=== PATIENT | female | born 1990 | race Caucasian/White ===

== ENCOUNTER 2016-09-23 16:52 | Emergency (ER) | payer SELFPAY ==
[~2016-09-23] VITALS: Ht 180.3 cm; Wt 167.7 kg
[~2016-09-23 16:52] MED LIST: BCPILLS PO; BUPR-79 PO; BUPR100T8 PO; OMEP40CA PO
[2016-09-23 16:58] VITALS: Ht 180.3 cm; Wt 167.7 kg
[2016-09-23] MEDS ORDERED: SODIUM CHLORIDE 0.9% 1000ML 1,000 ML IV STA (18:01)
[2016-09-23] MEDS ORDERED: KETOROLAC TROMETHAMINE 30 MG/ML VIAL IV STA (18:01)
--- NOTE | 2016-09-23 18:15 | DIAGNOSTIC IMAGING REPORT ---
CHEST ONE VIEW PORTABLE CLINICAL HISTORY: cough, fevers dyspnea COMPARISON STUDY: 08/15/2012 FINDINGS: The bones soft tissues and hemidiaphragms are normal. The cardiomediastinal silhouette is normal. The lungs are clear. The pulmonary vasculature is normal. IMPRESSION: Negative chest. Electronically signed by: Gabriel Mercado M.D. 09/23/2016 6:13 PM
[2016-09-23 19:02] LABS: BASO % 0.5 %; BASO ABS # 0.04 K/uL (0-0.2); COMPLETE YES; EOS % 3.8 %; HEMATOCRIT 40.9 % (37-47); IG% 0.3 %; LYMPH % 33.9 %; LYMPH ABS # 2.58 K/uL (1.2-3.4); MEAN CELL VOLUME 87.6 fL (80-100); MEAN CORPUSCULAR HEMOGLOBIN 29.3 pg (25-34); MEAN CORPUSCULAR HGB CONC 33.5 g/dl (32-36); MEAN PLATELET VOLUME 9.6 fL (7.4-10.4); NEUT % 55.5 %; PLATELET COUNT 288 K/uL (130-400); RED BLOOD COUNT 4.67 M/uL (4.2-5.4); WHITE BLOOD COUNT 7.62 K/uL (4.8-10.8)
[2016-09-23 19:26] LABS: BUN/CREATININE RATIO 16.3 (10-20); CALCIUM 8.9 mg/dl (8.5-10.1); CREATININE 0.75 mg/dl (0.60-1.20); POTASSIUM 4.1 mmol/L (3.5-5.1)
--- NOTE | 2016-09-23 20:26 | EMERGENCY ROOM VISIT NOTE ---
History First contact with patient: 17:54 Chief Complaint: FLU LIKE SX Stated Complaint: BODY ACHES, FEVER, HEADACHE History of Present Illness The patient is a 25 year old female who presents to the Emergency Room with complaints of flulike symptoms which began last night. The patient reports she has had "hot flashes," headaches and body aches. She has also had a mild cough. She does repeat she has had a nausea and decreased appetite as well. The patient has felt feverish, but has not taken her temperature. She did not take any medications today. She denies any neck pain/stiffness. She denies any chest pain, shortness of breath, vomiting or diarrhea. Review of Systems A complete 10-point Review of Systems was discussed with the patient, with pertinent positives and negatives listed in the History of Present Illness. All remaining Review of Systems questions can be considered negative unless otherwise specified. Past Medical/Surgical History Medical Problems: (1) Abdominal pain (2) Cellulitis of lip (3) Conjunctivitis (4) Contusion of right knee (5) Diab Lachelle Wo Compl, Type Ii Or Unspec Type, Not Uncntrld (6) Epigastric abdominal pain (7) Esophageal Reflux (8) Fall from slipping on slippery surface (9) Hyperlipidemia Nec/Nos (10) Hypertension (11) Hypertension Nos (12) Morbid Obesity (13) PCOS (polycystic ovarian syndrome) (14) Sore throat (15) Suicidal ideation (16) Tobacco Use Disorder (17) Upper respiratory infection (18) Work related injury Surgical Problems: (1) History of tonsillectomy and adenoidectomy Family History Diabetes mellitus FH: cancer FH: cardiovascular disease Social History Smoking Status: Current Every Day Smoker Alcohol Use: none Drug Use: none Marital Status: single Housing Status: lives with family Occupation Status: employed Current/Historical Medications Scheduled Bupropion (Wellbutrin Sr), 100 MG PO QAM Bupropion (Wellbutrin Sr), 150 MG PO DAILY@1300 Clonidine Hcl (Catapres), 0.2 MG PO HS Hctz/Lisinopril (Lisinopril/Hctz 10/12.5 Mg), 1 TAB PO DAILY Metformin Hcl (Glucophage), 500 MG PO BID Multivitamin (Multivitamin), 1 TAB PO DAILY Omeprazole (Prilosec), 40 MG PO DAILY Allergies Coded Allergies: Amoxicillin (Verified Allergy, Unknown, ., 09/23/16) Hydrocodone (Verified Allergy, Unknown, /, 09/23/16) Lanolin (Unverified Allergy, Unknown, BREAKOUT, 09/23/16) Oxycodone (Verified Allergy, Unknown, hives, 09/23/16) Physical Exam Vital Signs Date Time Temp Pulse Resp B/P Pulse Ox O2 Delivery O2 Flow Rate FiO2 09/23/16 20:56 36.9 60 18 125/81 99 09/23/16 16:58 36.9 71 16 132/88 98 Room Air Physical Exam VITALS: Vitals are noted on the nurse's note and reviewed by myself. Vital signs stable. GENERAL: This is a 25-year-old female, in no acute distress, nondiaphoretic, nontoxic in appearance, well-developed well-nourished. SKIN: The skin was without rashes. EARS: External auditory canals clear, tympanic membranes pearly bryant without erythema or effusion bilaterally. EYES: Pupils equal round and reactive to light and accommodation. Extraocular movements intact. NOSE: Patent, turbinates without inflammation or discharge. No sinus tenderness. MOUTH: Mucous membranes moist. Tonsils are not enlarged. Pharynx without erythema or exudate. NECK: Supple without nuchal rigidity. No lymphadenopathy. Negative Kernig and Brudzinski sign. HEART: Regular rate and rhythm without murmurs gallops or rubs. LUNGS: Clear to auscultation bilaterally without wheezes, rales or rhonchi. No retractions or accessory muscle use. ABDOMEN: Soft, nontender to palpation. NEURO: Patient was alert and oriented to person place and time. Medical Decision & Procedures ER Provider Diagnostic Interpretation: CHEST ONE VIEW PORTABLE FINDINGS: The bones soft tissues and hemidiaphragms are normal. The cardiomediastinal silhouette is normal. The lungs are clear. The pulmonary vasculature is normal. IMPRESSION: Negative chest. Laboratory Results 09/23/16 18:34 Red Blood Count 4.67, Mean Corpuscular Volume 87.6, Mean Corpuscular Hemoglobin 29.3, Mean Corpuscular Hemoglobin Concent 33.5, Mean Platelet Volume 9.6, Neutrophils (%) (Auto) 55.5, Lymphocytes (%) (Auto) 33.9, Monocytes (%) (Auto) 6.0, Eosinophils (%) (Auto) 3.8, Basophils (%) (Auto) 0.5, Neutrophils # (Auto) 4.23, Lymphocytes # (Auto) 2.58, Monocytes # (Auto) 0.46, Eosinophils # (Auto) 0.29, Basophils # (Auto) 0.04 09/23/16 18:34 Test 09/23/16 18:30 09/23/16 18:34 Influenza Type A Antigen Neg for Influ A (NEG) Influenza Type B Antigen Neg for Influ B (NEG) White Blood Count 7.62 K/uL (4.8-10.8) Red Blood Count 4.67 M/uL (4.2-5.4) Hemoglobin 13.7 g/dL (12.0-16.0) Hematocrit 40.9 % (37-47) Mean Corpuscular Volume 87.6 fL (80-100) Mean Corpuscular Hemoglobin 29.3 pg (25-34) Mean Corpuscular Hemoglobin Concent 33.5 g/dl (32-36) Platelet Count 288 K/uL (130-400) Mean Platelet Volume 9.6 fL (7.4-10.4) Neutrophils (%) (Auto) 55.5 % Lymphocytes (%) (Auto) 33.9 % Monocytes (%) (Auto) 6.0 % Eosinophils (%) (Auto) 3.8 % Basophils (%) (Auto) 0.5 % Neutrophils # (Auto) 4.23 K/uL (1.4-6.5) Lymphocytes # (Auto) 2.58 K/uL (1.2-3.4) Monocytes # (Auto) 0.46 K/uL (0.11-0.59) Eosinophils # (Auto) 0.29 K/uL (0-0.5) Basophils # (Auto) 0.04 K/uL (0-0.2) RDW Standard Deviation 42.3 fL (36.4-46.3) RDW Coefficient of Variation 13.3 % (11.5-14.5) Immature Granulocyte % (Auto) 0.3 % Immature Granulocyte # (Auto) 0.02 K/uL (0.00-0.02) Anion Gap 8.0 mmol/L (3-11) Est Creatinine Clear Calc Drug Dose 200.0 ml/min Estimated GFR () 129.3 Estimated GFR (Non- 111.6 BUN/Creatinine Ratio 16.3 (10-20) Calcium Level 8.9 mg/dl (8.5-10.1) Monoscreen NEG (NEG) Medications Administered Medications (Trade) Dose Ordered Sig/Eddie Route Start Time Stop Time Status Last Admin Dose Admin Sodium Chloride (Nss 1000ml) 1,000 ml @ 999 mls/hr Q1H1M STAT IV 09/23/16 18:01 09/23/16 19:01 DC 09/23/16 18:01 999 MLS/HR Ketorolac Tromethamine (Toradol Inj) 30 mg NOW STAT IV 09/23/16 18:01 09/23/16 18:03 DC 09/23/16 18:52 30 MG Medical Decision Differential diagnosis includes influenza, mononucleosis, viral syndrome, meningitis, encephalitis, pneumonia, upper respiratory infection, among others. The patient was evaluated as above. Labs were drawn and IV access was obtained. Imaging studies were performed and read by radiology as above. The patient was medicated with 30 mg Toradol IV and 1 L normal saline solution. The patient was reassessed multiple times during their stay in the emergency department and remained in stable condition. The patient is a 25-year-old female who presents today complaining of flulike symptoms. Labs revealed no leukocytosis, anemia or concerning electrolyte abnormalities. [place] screen was negative. Influenza was negative. Chest x-ray did not show any evidence of pneumonia. There is no evidence of meningismus on examination. The patient does report headaches, but they are not severe and she does not complain of neck stiffness or neck pain. I feel that meningitis is very unlikely. The patient likely has a viral flulike illness. She felt much better after IV Toradol and fluids. Conservative measures were discussed with the patient, he will follow up with her primary care provider or return for worsening symptoms. Based on the patient's presentation, lab results, and imaging studies, I feel the patient is stable for outpatient treatment. Discharge instructions were reviewed with the patient. The patient verbalized understanding of my assessment and treatment plan and was discharged home in good condition. Impression Primary Impression: Influenza-like symptoms Departure Information Dispostion Home / Self-Care Condition GOOD Referrals Meli Barone D.O. (PCP) Patient Instructions A Signature Page, My [facility] Additional Instructions For pain control, you can use the following [id number] medicines (if >12 yo): - Regular strength (325mg/tab) Tylenol (acetaminophen) 2 tabs every 4-6 hours as needed. Do not exceed 12 tablets in a 24 hour period. Avoid taking more than 4 grams (4000 mg) of Tylenol per day. This includes any other sources of acetaminophen you may take on a regular basis. - Regular strength (200 mg/tab) Advil (ibuprofen) 1-2 tabs every 4-6 hours as needed. Do not exceed a dose of 3200 mg per day. Rest and drink plenty of fluids. Follow-up with your primary care provider within 2-3 days for further evaluation of your symptoms.
[2016-09-23 20:56] VITALS: BP 125/81; PULSE 60; TEMP 36.9; O2SAT 99
[2017-03-24] MEDS ORDERED: LSN/10125 PO (00:57)
[2017-03-24] MEDS ORDERED: MULT-506 PO (00:59)
[2017-03-24] MEDS ORDERED: CLON0.2T PO (09:17)
[2017-03-24] MEDS ORDERED: GLC/500 PO (21:19)
== END 2016-09-23 20:50 | disposition home or self-care (01) ==
LOC: C.EDB 16:54
DX: R51 Headache (principal); M79.1 Myalgia; R05 Cough; R11.0 Nausea; E11.9 Type 2 diabetes mellitus without complications; Z79.84 Long term (current) use of oral hypoglycemic drugs; E66.01 Morbid (severe) obesity due to excess calories; Z68.43 Body mass index [BMI] 50.0-59.9, adult; K21.9 Gastro-esophageal reflux disease without esophagitis; E78.5 Hyperlipidemia, unspecified; I10 Essential (primary) hypertension; F17.200 Nicotine dependence, unspecified, uncomplicated

== ENCOUNTER 2016-11-06 20:57 | Emergency (ER) | payer SELFPAY ==
[~2016-11-06] VITALS: Ht 180.3 cm; Wt 175.8 kg
[~2016-11-06 20:57] MED LIST changes: -BCPILLS PO
[2016-11-06 21:04] VITALS: TEMP 36.9; Ht 180.3 cm; Wt 175.8 kg
[2016-11-06] MEDS ORDERED: LIDOCAINE HCL 2% VISC SOLN 20 ML UDC PO STA (21:34)
[2016-11-06] MEDS ORDERED: DiphenhydrAMINE HCL 50 MG/ML VIAL IV STA (21:34)
[2016-11-06] MEDS ORDERED: ALUMINUM/MAGNESIUM SUSP 30 ML UDC PO STA (21:34)
[2016-11-06] MEDS ORDERED: SODIUM CHLORIDE 0.9% 1000ML 1,000 ML IV STA ×2 (21:34)
[2016-11-06] MEDS ORDERED: METOCLOPRAMIDE HCL INJ 5 MG/ML 2 ML VIAL IV STA (21:34)
[2016-11-06 22:15] VITALS: O2SAT 97
[2016-11-06 23:17] LABS: BASO % 0.4 %; BASO ABS # 0.03 K/uL (0-0.2); COMPLETE YES; EOS % 3.9 %; IG% 0.1 %; LYMPH ABS # 3.25 K/uL (1.2-3.4); MEAN CELL VOLUME 87.1 fL (80-100); MEAN CORPUSCULAR HGB CONC 33.3 g/dl (32-36); MEAN PLATELET VOLUME 9.8 fL (7.4-10.4); NEUT % 45.6 %; PLATELET COUNT 265 K/uL (130-400); RED BLOOD COUNT 4.48 M/uL (4.2-5.4); WHITE BLOOD COUNT 7.38 K/uL (4.8-10.8)
[2016-11-06 23:35] LABS: ALT/SGPT 33 U/L (12-78); AST/SGOT 13 U/L (15-37); BLOOD UREA NITROGEN 10 mg/dl (7-18); BUN/CREATININE RATIO 15.9 (10-20); CALCIUM 8.7 mg/dl (8.5-10.1); CARBON DIOXIDE 24 mmol/L (21-32); CHLORIDE 110 mmol/L (98-107); CREATININE 0.63 mg/dl (0.60-1.20); GLUCOSE 85 mg/dl (70-99); POTASSIUM 4.1 mmol/L (3.5-5.1); SODIUM 145 mmol/L (136-145)
[2016-11-06 23:38] LABS: ALKALINE PHOSPHATASE 75 U/L (45-117)
[2016-11-06 23:43] LABS: PREG INTERNAL NEGATIVE QC NEG CLEAR BACKGROUND; PREG INTERNAL POSITIVE QC POS CONTROL LINE
[2016-11-07] MEDS ORDERED: PANTOprazole SOD 40 MG TAB PO STA (00:21)
[2016-11-07] MEDS ORDERED: PANT40TA PO (00:23)
[2016-11-07 00:36] LABS: URINE APPEARANCE CLOUDY (CLEAR); URINE BILIRUBIN NEG (NEG); URINE COLOR YELLOW; URINE EPITHELIAL CELL AUTO 20-30 /lpf (0-5); URINE NITRITE NEG (NEG); URINE PH 5.5 (4.5-7.5); URINE SPECIFIC GRAVITY 1.028 (1.000-1.030); UROBILINOGEN NEG (NEG); ZZUR CULT IF INDIC CLEAN CATCH NO
[2016-11-07 00:45] VITALS: BP 135/68; PULSE 58; O2SAT 98
[2016-11-07 00:53] LABS: MANUAL MICROSCOPIC REQUIRED? NO; REVIEW REQ? YES
[2016-11-07 00:55] LABS: URINE MUCUS PRESENT (NONE PRSENT)
--- NOTE | 2016-11-07 06:27 | DIAGNOSTIC IMAGING REPORT ---
ABDOMINAL ULTRASOUND, RIGHT UPPER QUADRANT HISTORY: Right upper quadrant abdominal pain.. COMPARISON: Right upper quadrant ultrasound February 23, 2016. FINDINGS: This exam is significantly compromised by suboptimal penetration. Hepatic echogenicity is increased. No hepatic lesions are identified although sensitivity is diminished on this exam. The pancreas body is normal. The head and tail are obscured. There are no gallstones. No biliary ductal dilatation is identified. There is no gallbladder wall thickening. There is no right hydronephrosis. IMPRESSION: 1. No gallstones or biliary ductal dilatation. 2. Study significantly compromised by suboptimal penetration. Partially obscured pancreas. 3. Fatty liver. Electronically signed by: Gio Bernard M.D. 11/07/2016 6:26 AM Dictated Date/Time: 11/07/2016 6:24 AM
--- NOTE | 2016-11-07 06:41 | EMERGENCY ROOM VISIT NOTE ---
History First contact with patient: 21:27 Chief Complaint: ABDOMINAL PAIN Stated Complaint: STOMACH PAIN, BACK PAIN, NAUSEA History of Present Illness The patient is a 26 year old female who presents to the Emergency Room with complaints of nausea, epigastric discomfort for the past day described as burning, ranging in severity 7 out of 10. She's had these symptoms before. She is unsure if its her reflux or her gallbladder. Patient denies chest pain, dyspnea, fever, chills, vomiting, diarrhea, cough, congestion. She is tolerating by mouth fluids and food. Review of Systems See HPI for pertinent positives & negatives. A total of 10 systems reviewed and were otherwise negative. Past Medical/Surgical History Medical Problems: (1) Abdominal pain (2) Cellulitis of lip (3) Conjunctivitis (4) Contusion of right knee (5) Diab Lachelle Wo Compl, Type Ii Or Unspec Type, Not Uncntrld (6) Epigastric abdominal pain (7) Esophageal Reflux (8) Fall from slipping on slippery surface (9) Hyperlipidemia Nec/Nos (10) Hypertension (11) Hypertension Nos (12) Morbid Obesity (13) PCOS (polycystic ovarian syndrome) (14) Sore throat (15) Suicidal ideation (16) Tobacco Use Disorder (17) Upper respiratory infection (18) Work related injury Surgical Problems: (1) History of tonsillectomy and adenoidectomy Family History Diabetes mellitus FH: cancer FH: cardiovascular disease Social History Smoking Status: Current Every Day Smoker Alcohol Use: none Drug Use: none Marital Status: single Housing Status: lives with family Occupation Status: employed Current/Historical Medications Scheduled Bupropion (Wellbutrin Sr), 100 MG PO QAM Bupropion (Wellbutrin Sr), 150 MG PO DAILY@1300 Clonidine Hcl (Catapres), 0.2 MG PO HS Hctz/Lisinopril (Lisinopril/Hctz 10/12.5 Mg), 1 TAB PO DAILY Metformin Hcl (Glucophage), 500 MG PO BID Multivitamin (Multivitamin), 1 TAB PO DAILY Omeprazole (Prilosec), 40 MG PO DAILY Pantoprazole (Protonix), 40 MG PO DAILY Allergies Coded Allergies: Amoxicillin (Verified Allergy, Unknown, ., 11/06/16) Hydrocodone (Verified Allergy, Unknown, /, 11/06/16) Lanolin (Unverified Allergy, Unknown, BREAKOUT, 11/06/16) Oxycodone (Verified Allergy, Unknown, hives, 11/06/16) Physical Exam Vital Signs Date Time Temp Pulse Resp B/P Pulse Ox O2 Delivery O2 Flow Rate FiO2 11/07/16 00:45 58 19 135/68 98 Room Air 11/06/16 23:03 60 21 144/63 98 Room Air 11/06/16 22:19 62 11/06/16 22:15 97 Room Air 11/06/16 21:04 36.9 74 16 157/93 100 Room Air Physical Exam VITALS: Vitals are noted on the nurse's note and reviewed by myself. Vital signs stable. GENERAL: Pleasant female, in no acute distress, nondiaphoretic, well-developed well-nourished. SKIN: The skin was without rashes, erythema, edema, or bruising. There is no tenting of the skin. Capillary reflex less than 2 seconds. HEAD: Normocephalic atraumatic. EARS: External auditory canals clear, tympanic membranes pearly bryant without erythema or effusion bilaterally. EYES: Pupils equal round and reactive to light and accommodation. Conjunctivae without injection, sclerae without icterus. Extraocular movements intact. NOSE: Patent, turbinates without inflammation or discharge. No sinus tenderness. MOUTH: Mucous membranes moist. Tonsils are not enlarged. Pharynx without erythema or exudate. Uvula midline. Airway patent. Tongue does not deviate. NECK: Supple without nuchal rigidity. No lymphadenopathy. No thyromegaly. Cervical spine is nontender. No JVD. HEART: Regular rate and rhythm without murmurs gallops or rubs. LUNGS: Clear to auscultation bilaterally without wheezes, rales or rhonchi. No dullness to percussion. No retractions or accessory muscle use. ABDOMEN: Positive bowel sounds x 4. Normal tympanic percussion. Soft, protuberant, obese, tender to palpation epigastric region, without masses or organomegaly. Jackson sign negative. No guarding or rebound tenderness. No CVA tenderness MUSCULOSKELETAL: No muscle atrophy, erythema, noted. NEURO: Patient was alert and oriented to person place and time. Normal sensation to light and sharp touch. No focal neurological deficits. Medical Decision & Procedures Laboratory Results 11/06/16 23:00 Red Blood Count 4.48, Mean Corpuscular Volume 87.1, Mean Corpuscular Hemoglobin 29.0, Mean Corpuscular Hemoglobin Concent 33.3, Mean Platelet Volume 9.8, Neutrophils (%) (Auto) 45.6, Lymphocytes (%) (Auto) 44.0, Monocytes (%) (Auto) 6.0, Eosinophils (%) (Auto) 3.9, Basophils (%) (Auto) 0.4, Neutrophils # (Auto) 3.36, Lymphocytes # (Auto) 3.25, Monocytes # (Auto) 0.44, Eosinophils # (Auto) 0.29, Basophils # (Auto) 0.03 11/06/16 23:00 Test 11/06/16 23:00 11/07/16 00:18 White Blood Count 7.38 K/uL (4.8-10.8) Red Blood Count 4.48 M/uL (4.2-5.4) Hemoglobin 13.0 g/dL (12.0-16.0) Hematocrit 39.0 % (37-47) Mean Corpuscular Volume 87.1 fL (80-100) Mean Corpuscular Hemoglobin 29.0 pg (25-34) Mean Corpuscular Hemoglobin Concent 33.3 g/dl (32-36) Platelet Count 265 K/uL (130-400) Mean Platelet Volume 9.8 fL (7.4-10.4) Neutrophils (%) (Auto) 45.6 % Lymphocytes (%) (Auto) 44.0 % Monocytes (%) (Auto) 6.0 % Eosinophils (%) (Auto) 3.9 % Basophils (%) (Auto) 0.4 % Neutrophils # (Auto) 3.36 K/uL (1.4-6.5) Lymphocytes # (Auto) 3.25 K/uL (1.2-3.4) Monocytes # (Auto) 0.44 K/uL (0.11-0.59) Eosinophils # (Auto) 0.29 K/uL (0-0.5) Basophils # (Auto) 0.03 K/uL (0-0.2) RDW Standard Deviation 42.9 fL (36.4-46.3) RDW Coefficient of Variation 13.4 % (11.5-14.5) Immature Granulocyte % (Auto) 0.1 % Immature Granulocyte # (Auto) 0.01 K/uL (0.00-0.02) Anion Gap 11.0 mmol/L (3-11) Est Creatinine Clear Calc Drug Dose 243.0 ml/min Estimated GFR () 144.5 Estimated GFR (Non- 124.7 BUN/Creatinine Ratio 15.9 (10-20) Calcium Level 8.7 mg/dl (8.5-10.1) Total Bilirubin 0.1 mg/dl (0.2-1) Direct Bilirubin < 0.1 mg/dl (0-0.2) Aspartate Amino Transf (AST/SGOT) 13 U/L (15-37) Alanine Aminotransferase (ALT/SGPT) 33 U/L (12-78) Alkaline Phosphatase 75 U/L (45-117) Total Protein 6.8 gm/dl (6.4-8.2) Albumin 3.3 gm/dl (3.4-5.0) Lipase 192 U/L (73-393) Human Chorionic Gonadotropin, Qual NEG (NEG) Urine Color YELLOW Urine Appearance CLOUDY (CLEAR) Urine pH 5.5 (4.5-7.5) Urine Specific [place] 1.028 (1.000-1.030) Urine Protein NEG (NEG) Urine Glucose (UA) NEG (NEG) Urine Ketones NEG (NEG) Urine Occult Blood NEG (NEG) Urine Nitrite NEG (NEG) Urine Bilirubin NEG (NEG) Urine Urobilinogen NEG (NEG) Urine Leukocyte Esterase NEG (NEG) Urine WBC (Auto) 1-5 /hpf (0-5) Urine RBC (Auto) 0-4 /hpf (0-4) Urine Hyaline Casts (Auto) 1-5 /lpf (0-5) Urine Epithelial Cells (Auto) 20-30 /lpf (0-5) Urine Bacteria (Auto) NEG (NEG) Urine Crystals CALCIUM OXALATE (NONE Urine Mucus PRESENT (NONE PRSENT) Medications Administered Medications (Trade) Dose Ordered Sig/Eddie Route Start Time Stop Time Status Last Admin Dose Admin Lidocaine HCl (Viscous Lidocaine 2% Soln) 10 ml NOW STAT PO 11/06/16 21:34 11/06/16 21:37 DC 11/06/16 22:19 10 ML Al Hydroxide/Mg Hydroxide 30 ml 30 ml NOW STAT PO 11/06/16 21:34 11/06/16 21:37 DC 11/06/16 22:20 30 ML Sodium Chloride 1,000 ml @ 999 mls/hr Q1H1M STAT IV 11/06/16 21:34 11/06/16 22:34 DC 11/06/16 22:21 999 MLS/HR Sodium Chloride (Nss 1000ml) 1,000 ml @ 200 mls/hr Q5H STAT IV 11/06/16 21:34 11/07/16 01:26 DC 11/06/16 21:34 200 MLS/HR Metoclopramide HCl (Reglan Inj) 10 mg NOW STAT IV 11/06/16 21:34 11/06/16 21:37 DC 11/06/16 22:20 10 MG Diphenhydramine HCl (Benadryl Inj) 12.5 mg NOW STAT IV 11/06/16 21:34 11/06/16 21:37 DC 11/06/16 22:20 12.5 MG Pantoprazole Sodium (Protonix Tab) 40 mg NOW STAT PO 11/07/16 00:21 11/07/16 00:22 DC 11/07/16 00:40 40 MG ED Course Prior records/ancillary studies reviewed. Triage Nursing notes reviewed. Additional history obtained from family. The patient's history was concerning for abdominal pain. Differential diagnosis: Etiologies such as appendicitis, diverticulitis, PUD, biliary pathology, UTI, pancreatitis, obstruction, mesenteric ischemia, aortic pathology, infections, inflammatory bowel disease, renal colic, as well as others were entertained. Physical examination findings: As above. ER treatment provided: GI cocktail, IV fluids, Reglan, Benadryl On reassessment the patient felt better. Diagnostics interpreted by me: The labs revealed no worrisome leukocytosis or electrolyte abnormality. Stable H&H Imaging studies: ABDOMINAL ULTRASOUND, RIGHT UPPER QUADRANT HISTORY: Right upper quadrant abdominal pain.. COMPARISON: Right upper quadrant ultrasound February 23, 2016. FINDINGS: This exam is significantly compromised by suboptimal penetration. Hepatic echogenicity is increased. No hepatic lesions are identified although sensitivity is diminished on this exam. The pancreas body is normal. The head and tail are obscured. There are no gallstones. No biliary ductal dilatation is identified. There is no gallbladder wall thickening. There is no right hydronephrosis. IMPRESSION: 1. No gallstones or biliary ductal dilatation. 2. Study significantly compromised by suboptimal penetration. Partially obscured pancreas. 3. Fatty liver. Electronically signed by: Gio Bernard M.D. Exam and history seem consistent with gastric discomfort most likely acid reflux. Patient was started on a PPI.. Patient is well-appearing. She did not have acute abdomen on exam. She is tolerating fluids. She is advised to rest, stay well-hydrated, follow-up family care in a few days or here in the ER sooner for abdominal pain, fevers, vomiting, worsening signs or symptoms or as needed.By the evaluation outlined above emergent etiologies such as appendicitis , diverticulitis, PUD, biliary pathology, UTI, pancreatitis, obstruction, mesenteric ischemia, aortic pathology, infections, inflammatory bowel disease, renal colic, as well as others were deemed relatively unlikely. The pt informed about the findings as listed above. All questions were answered and pleased with the treatment. Return instructions were outlined and the patient was discharged in stable condition. Outpatient prescription management: Protonix Referral: The patient was referred back to their primary care physician for follow-up in 2 to 3 days for a recheck of the current condition. case reviewed with my Attending Medical Decision As above Impression Primary Impression: Abdominal discomfort, epigastric Additional Impression: GERD (gastroesophageal reflux disease) Departure Information Dispostion Home / Self-Care Condition GOOD Prescriptions Pantoprazole (Protonix) 40 Mg Tab 40 MG PO DAILY for 14 Days, #14 TAB Prov: Jammie Aponte .ORQUIDEA 11/07/16 Referrals Meli Barone D.O. (PCP) Patient Instructions My [facility] Additional Instructions Protonix 40 m tablet daily for the next 2 weeks. Take this on an empty stomach. You can try Maalox for breakthrough symptoms. Acetaminophen(Tylenol) may be used for fever or pain. Use 1000mg every six hours as needed. Avoid using more than 3000mg in a 24 hour period. Rest and drink plenty of fluids as tolerated. Continue current medications. Return to the ER immediately for worsening or persistent abdominal pain, vomiting, fevers, chest pains, difficulty breathing, worsening of your condition , or as needed. Follow up with your primary physician in 2-3 days for a recheck of your current condition. Problem Qualifiers
[2017-03-24] MEDS ORDERED: LSN/10125 PO (00:57)
[2017-03-24] MEDS ORDERED: MULT-506 PO (00:59)
[2017-03-24] MEDS ORDERED: CLON0.2T PO (09:17)
[2017-03-24] MEDS ORDERED: GLC/500 PO (21:19)
== END 2016-11-07 00:47 | disposition home or self-care (01) ==
LOC: C.EDB 20:58 → C.EDC 11-07 00:47
DX: R10.13 Epigastric pain (principal); K21.9 Gastro-esophageal reflux disease without esophagitis; R11.0 Nausea; E11.9 Type 2 diabetes mellitus without complications; E78.5 Hyperlipidemia, unspecified; I10 Essential (primary) hypertension; Z79.84 Long term (current) use of oral hypoglycemic drugs; Z79.899 Other long term (current) drug therapy; Z88.1 Allergy status to other antibiotic agents; Z88.5 Allergy status to narcotic agent; Z88.8 Allergy status to other drugs, medicaments and biological substances

== ENCOUNTER 2016-11-17 00:09 | Emergency (ER) | payer SELFPAY ==
[~2016-11-17] VITALS: Ht 180.3 cm; Wt 167.2 kg
[~2016-11-17 00:09] MED LIST changes: -OMEP40CA PO; +PANT40TA PO
[2016-11-17 00:14] VITALS: TEMP 37.1; Ht 180.3 cm; Wt 167.2 kg
[2016-11-17] MEDS ORDERED: ONDANSETRON INJ 2 MG/ML 2 ML VIAL IV STA (00:35)
[2016-11-17] MEDS ORDERED: SODIUM CHLORIDE 0.9% 1000ML 1,000 ML IV STA (00:35)
[2016-11-17 00:54] LABS: URINE APPEARANCE CLEAR (CLEAR); URINE BILIRUBIN NEG (NEG); URINE COLOR YELLOW; URINE NITRITE NEG (NEG); URINE PH 5.5 (4.5-7.5); URINE SPECIFIC GRAVITY 1.022 (1.000-1.030); UROBILINOGEN NEG (NEG); ZZUR CULT IF INDIC CLEAN CATCH NO
[2016-11-17 01:04] LABS: HEMATOCRIT 41.3 % (37-47); MEAN CELL VOLUME 84.5 fL (80-100); MEAN CORPUSCULAR HEMOGLOBIN 28.4 pg (25-34); MEAN CORPUSCULAR HGB CONC 33.7 g/dl (32-36); MEAN PLATELET VOLUME 9.5 fL (7.4-10.4); PLATELET COUNT 300 K/uL (130-400); RED BLOOD COUNT 4.89 M/uL (4.2-5.4); WHITE BLOOD COUNT 8.28 K/uL (4.8-10.8)
[2016-11-17 01:06] LABS: MANUAL MICROSCOPIC REQUIRED? NO; REVIEW REQ? NO
[2016-11-17 01:29] LABS: BUN/CREATININE RATIO 13.4 (10-20); CREATININE 0.78 mg/dl (0.60-1.20); POTASSIUM 3.9 mmol/L (3.5-5.1)
[2016-11-17 01:31] LABS: BASO % 0.4 %; BASO ABS # 0.03 K/uL (0-0.2); COMPLETE YES; EOS % 3.5 %; IG% 0.2 %; LYMPH % 43.6 %; LYMPH ABS # 3.61 K/uL (1.2-3.4); MONO % 6.8 %; NEUT % 45.5 %
[2016-11-17 01:40] LABS: THYROID STIMULATING HORMONE 5.95 uIu/ml (0.300-4.500)
[2016-11-17] MEDS ORDERED: ONDA4TAB10 SL (01:56)
--- NOTE | 2016-11-17 01:57 | EMERGENCY ROOM VISIT NOTE ---
History First contact with patient: 00:22 Chief Complaint: VOMITING Stated Complaint: VOMITING,TIRED,FREQUENT URINATION Nursing Triage Summary: Pt reports she thinks she may be . Intermittent nausea and vomiting for 2 weeks. Requesting blood test to determine . History of Present Illness The patient is a 26 year old female who presents to the Emergency Department by private vehicle for evaluation of her 1.5 week history of nausea and vomiting. This has occurred sporadically. She's had no abdominal pain. There is been no fevers or chills. She reports feeling tired and rundown over the past month. She is concern for . She denies any vaginal bleeding or spotting. She reports no discharge or drainage. She rates her current discomfort as 0/ 10. She denies any headaches, dizziness, lightheadedness, chest pain, palpitations, short of breath, hematemesis, hematochezia, melena, hematuria, or dysuria. She reports that her last menstrual period was in June. Review of Systems A complete 10-point Review of Systems was discussed with the patient, with pertinent positives and negatives listed in the History of Present Illness. All remaining Review of Systems questions can be considered negative unless otherwise specified. Past Medical/Surgical History Medical Problems: (1) Abdominal pain (2) Cellulitis of lip (3) Conjunctivitis (4) Contusion of right knee (5) Diab Lachelle Wo Compl, Type Ii Or Unspec Type, Not Uncntrld (6) Epigastric abdominal pain (7) Esophageal Reflux (8) Fall from slipping on slippery surface (9) Hyperlipidemia Nec/Nos (10) Hypertension (11) Hypertension Nos (12) Morbid Obesity (13) PCOS (polycystic ovarian syndrome) (14) Sore throat (15) Suicidal ideation (16) Tobacco Use Disorder (17) Upper respiratory infection (18) Work related injury Surgical Problems: (1) History of tonsillectomy and adenoidectomy Family History Diabetes mellitus FH: cancer FH: cardiovascular disease Social History Smoking Status: Current Every Day Smoker Smokeless Tobacco Use: No Alcohol Use: none Drug Use: none Marital Status: single Housing Status: lives with family Occupation Status: employed Current/Historical Medications Scheduled Bupropion (Wellbutrin Sr), 100 MG PO QAM Bupropion (Wellbutrin Sr), 150 MG PO DAILY@1300 Clonidine Hcl (Catapres), 0.2 MG PO HS Hctz/Lisinopril (Lisinopril/Hctz 10/12.5 Mg), 1 TAB PO DAILY Metformin Hcl (Glucophage), 500 MG PO BID Multivitamin (Multivitamin), 1 TAB PO DAILY Omeprazole (Prilosec), 40 MG PO DAILY Pantoprazole (Protonix), 40 MG PO DAILY Scheduled PRN Ondasetron Odt (Zofran Odt), 1 TAB SL Q6 PRN for Nausea or Vomiting Allergies Coded Allergies: Amoxicillin (Verified Allergy, Unknown, ., 11/17/16) Hydrocodone (Verified Allergy, Unknown, /, 11/17/16) Lanolin (Unverified Allergy, Unknown, BREAKOUT, 11/17/16) Oxycodone (Verified Allergy, Unknown, hives, 11/17/16) Physical Exam Vital Signs Date Time Temp Pulse Resp B/P Pulse Ox O2 Delivery O2 Flow Rate FiO2 11/17/16 01:59 55 18 113/60 98 Room Air 11/17/16 00:14 37.1 69 20 129/92 99 Room Air Pain Rating (0-10): 0 Physical Exam VITAL SIGNS - Vital signs and nursing notes were reviewed. GENERAL - 26-year-old female appearing her stated age who is in no acute distress. Communicates well with provider and answers questions appropriately. LUNGS - Chest wall symmetric without accessory muscle use, intercostals retractions, or central cyanosis. Normal vesicular breath sounds CTA B/L. No wheezes, rales, or rhonchi appreciated. CARDIAC - RRR with S1/S2. No murmur, rubs, or gallops appreciated. ABDOMEN - Abdominal contour obese and without pulsations or visible masses. BS normoactive all four quadrants. No tenderness to palpation appreciated throughout. No guarding. No Rebound Tenderness. Negative Rovsing's. Negative Jackson's. No palpable masses, hepatosplenomegaly, or ascites noted. PSYCH - A&Ox3 and cooperates fully with examiner. Pt is very pleasant and interacts well with examiner. Medical Decision & Procedures Laboratory Results 11/17/16 00:50 Red Blood Count 4.89, Mean Corpuscular Volume 84.5, Mean Corpuscular Hemoglobin 28.4, Mean Corpuscular Hemoglobin Concent 33.7, Mean Platelet Volume 9.5, Neutrophils (%) (Auto) 45.5, Lymphocytes (%) (Auto) 43.6, Monocytes (%) (Auto) 6.8, Eosinophils (%) (Auto) 3.5, Basophils (%) (Auto) 0.4, Neutrophils # (Auto) 3.77, Lymphocytes # (Auto) 3.61, Monocytes # (Auto) 0.56, Eosinophils # (Auto) 0.29, Basophils # (Auto) 0.03 11/17/16 00:50 Test 11/17/16 00:35 11/17/16 00:45 11/17/16 00:50 Urine Test NEG (NEG) Urine Color YELLOW Urine Appearance CLEAR (CLEAR) Urine pH 5.5 (4.5-7.5) Urine Specific [place] 1.022 (1.000-1.030) Urine Protein NEG (NEG) Urine Glucose (UA) NEG (NEG) Urine Ketones NEG (NEG) Urine Occult Blood NEG (NEG) Urine Nitrite NEG (NEG) Urine Bilirubin NEG (NEG) Urine Urobilinogen NEG (NEG) Urine Leukocyte Esterase NEG (NEG) White Blood Count 8.28 K/uL (4.8-10.8) Red Blood Count 4.89 M/uL (4.2-5.4) Hemoglobin 13.9 g/dL (12.0-16.0) Hematocrit 41.3 % (37-47) Mean Corpuscular Volume 84.5 fL (80-100) Mean Corpuscular Hemoglobin 28.4 pg (25-34) Mean Corpuscular Hemoglobin Concent 33.7 g/dl (32-36) Platelet Count 300 K/uL (130-400) Mean Platelet Volume 9.5 fL (7.4-10.4) Neutrophils (%) (Auto) 45.5 % Lymphocytes (%) (Auto) 43.6 % Monocytes (%) (Auto) 6.8 % Eosinophils (%) (Auto) 3.5 % Basophils (%) (Auto) 0.4 % Neutrophils # (Auto) 3.77 K/uL (1.4-6.5) Lymphocytes # (Auto) 3.61 K/uL (1.2-3.4) Monocytes # (Auto) 0.56 K/uL (0.11-0.59) Eosinophils # (Auto) 0.29 K/uL (0-0.5) Basophils # (Auto) 0.03 K/uL (0-0.2) RDW Standard Deviation 41.3 fL (36.4-46.3) RDW Coefficient of Variation 13.5 % (11.5-14.5) Immature Granulocyte % (Auto) 0.2 % Immature Granulocyte # (Auto) 0.02 K/uL (0.00-0.02) Red Blood Cell Morphology Unremarkable Anion Gap 11.0 mmol/L (3-11) Est Creatinine Clear Calc Drug Dose 190.3 ml/min Estimated GFR () 122.5 Estimated GFR (Non- 105.7 BUN/Creatinine Ratio 13.4 (10-20) Calcium Level 9.0 mg/dl (8.5-10.1) Magnesium Level 2.0 mg/dl (1.8-2.4) Total Bilirubin 0.2 mg/dl (0.2-1) Aspartate Amino Transf (AST/SGOT) 22 U/L (15-37) Alanine Aminotransferase (ALT/SGPT) 44 U/L (12-78) Alkaline Phosphatase 94 U/L (45-117) Total Protein 8.1 gm/dl (6.4-8.2) Albumin 4.0 gm/dl (3.4-5.0) Globulin 4.1 gm/dl (2.5-4.0) Albumin/Globulin Ratio 1.0 (0.9-2) Lipase 204 U/L (73-393) Thyroid Stimulating Hormone (TSH) 5.950 uIu/ml (0.300-4.500) Human Chorionic Gonadotropin, Quant < 1 mIU/mL Chemistry Specimen Hemolysis Medications Administered Medications (Trade) Dose Ordered Sig/Eddie Route Start Time Stop Time Status Last Admin Dose Admin Sodium Chloride (Nss 1000ml) 1,000 ml @ 999 mls/hr Q1H1M STAT IV 11/17/16 00:35 11/17/16 01:35 DC 11/17/16 00:57 999 MLS/HR Ondansetron HCl (Zofran Inj) 4 mg NOW STAT IV 11/17/16 00:35 11/17/16 00:37 DC 11/17/16 00:56 4 MG Ondansetron HCl (ZOFRAN ODT 4MG Home Pack) 1 homepack UD ONCE PO 11/17/16 02:00 11/17/16 02:01 DC 11/17/16 02:00 1 [facility] ED Course Patient was seen and evaluated by myself. Labs were drawn, saline lock in place. The patient was hydrated with 1000 mL normal saline bolus. She received 4 mg Zofran for nausea. Laboratory results demonstrate no acute leukocytosis, worrisome anemia, or bandemia. The patient has no significant electrolyte abnormalities. Urinalysis does not suggest infection. Urine is negative. Quantitative hCG was negative as well. The patient was reevaluated and feels better at this time. The patient was encouraged to follow -up with her primary care provider from today's visit. She was educated on worrisome symptoms for return visit to the emergency department. Patient discharged home afebrile and in good condition. Medical Decision Given the patient's presentation and stated complaint, I did elect to perform the above-mentioned workup. The patient presents today with multiple complains. Her labs are essentially unremarkable. Her abdomen is soft and nontender to palpation. Her main concern was possible . was ruled out today. No further assessment is necessary at this point. She'll follow-up with her primary care provider from today's visit or return for any changing/worsening symptoms. Patient discharged home afebrile and in good condition. In the evaluation and treatment this patient, the following differential diagnoses were considered: , abdominal pathology, amongst others. Impression Primary Impression: Nausea & vomiting Additional Impression: Tiredness Departure Information Dispostion Home / Self-Care Condition GOOD Prescriptions Ondasetron Odt (ZOFRAN ODT) 4 Mg Tab 1 TAB SL Q6 Y for Nausea or Vomiting, #20 TAB Prov: Thanh Draper PA-C 11/17/16 Referrals Meli Barone D.O. (PCP) Patient Instructions My [facility] Additional Instructions You have been treated in the Emergency Department your nausea and vomiting. You have been prescribed Zofran to be used for any nausea or vomiting. Take as prescribed. For pain control, you can use the following meez-zbc-ughnpad medicines (if >12 yo): - Regular strength (325mg/tab) Tylenol (acetaminophen) 2 tabs every 4-6 hours as needed. Do not exceed 12 tablets in a 24 hour period. Avoid taking more than 4 grams (4000 mg) of Tylenol per day. This includes any other sources of acetaminophen you may take on a regular basis. - Regular strength (200 mg/tab) Advil (ibuprofen) 1-2 tabs every 4-6 hours as needed. Do not exceed a dose of 3200 mg per day. Drink plenty of water and stay well hydrated. As with any trip to the Emergency Department, you should follow-up with your Primary Care Provider from today's visit. Return to the emergency department if your symptoms persist despite treatment plan outlined above or if the following symptoms occur: increased fevers, chills , worsening nausea/vomiting, blood in your stool or urine. Problem Qualifiers Primary Impression: Nausea & vomiting Vomiting type: unspecified Vomiting Intractability: non-intractable Qualified Codes: R11.2 - Nausea with vomiting, unspecified
[2016-11-17 01:59] VITALS: BP 113/60; PULSE 55; O2SAT 98
[2016-11-17] MEDS ORDERED: ONDANSETRON HOME PACK 4MG OD TAB PO ONE (02:00)
[2017-03-24] MEDS ORDERED: LSN/10125 PO (00:57)
[2017-03-24] MEDS ORDERED: MULT-506 PO (00:59)
[2017-03-24] MEDS ORDERED: CLON0.2T PO (09:17)
[2017-03-24] MEDS ORDERED: GLC/500 PO (21:19)
== END 2016-11-17 02:01 | disposition home or self-care (01) ==
LOC: C.EDB 00:10 → C.EDC 02:01
DX: R11.2 Nausea with vomiting, unspecified (principal); R53.83 Other fatigue; E11.9 Type 2 diabetes mellitus without complications; I10 Essential (primary) hypertension; E66.01 Morbid (severe) obesity due to excess calories; E28.2 Polycystic ovarian syndrome; K21.9 Gastro-esophageal reflux disease without esophagitis; F17.200 Nicotine dependence, unspecified, uncomplicated; Z91.81 History of falling; Z90.89 Acquired absence of other organs; Z83.3 Family history of diabetes mellitus; Z79.84 Long term (current) use of oral hypoglycemic drugs; Z79.899 Other long term (current) drug therapy

== ENCOUNTER 2016-12-15 13:20 | Emergency (ER) | payer SELFPAY ==
[~2016-12-15] VITALS: Ht 180.3 cm; Wt 162.0 kg
[~2016-12-15 13:20] MED LIST changes: +ONDA4TAB10 SL; -PANT40TA PO
[2016-12-15 13:26] VITALS: TEMP 36.6; Ht 180.3 cm; Wt 162.0 kg
[2016-12-15 14:14] LABS: BASO % 0.6 %; BASO ABS # 0.03 K/uL (0-0.2); COMPLETE YES; EOS % 3.7 %; HEMATOCRIT 40.5 % (37-47); IG% 0.2 %; LYMPH % 23.7 %; LYMPH ABS # 1.29 K/uL (1.2-3.4); MEAN CELL VOLUME 84.2 fL (80-100); MEAN CORPUSCULAR HEMOGLOBIN 27.9 pg (25-34); MEAN CORPUSCULAR HGB CONC 33.1 g/dl (32-36); MEAN PLATELET VOLUME 9.1 fL (7.4-10.4); NEUT % 62.8 %; PLATELET COUNT 257 K/uL (130-400); RED BLOOD COUNT 4.81 M/uL (4.2-5.4); WHITE BLOOD COUNT 5.44 K/uL (4.8-10.8)
[2016-12-15 14:26] LABS: URINE APPEARANCE CLEAR (CLEAR); URINE BILIRUBIN NEG (NEG); URINE COLOR YELLOW; URINE NITRITE NEG (NEG); URINE PH 5.5 (4.5-7.5); URINE SPECIFIC GRAVITY 1.012 (1.000-1.030); UROBILINOGEN NEG (NEG); ZZUR CULT IF INDIC CLEAN CATCH NO
[2016-12-15] MEDS ORDERED: ONDANSETRON INJ 2 MG/ML 2 ML VIAL IV STA (14:30)
[2016-12-15] MEDS ORDERED: KETOROLAC TROMETHAMINE 30 MG/ML VIAL IV STA (14:30)
[2016-12-15 14:32] LABS: MANUAL MICROSCOPIC REQUIRED? NO; REVIEW REQ? NO
[2016-12-15 14:39] LABS: BUN/CREATININE RATIO 12.8 (10-20); CALCIUM 9.1 mg/dl (8.5-10.1); CREATININE 0.68 mg/dl (0.60-1.20); POTASSIUM 3.9 mmol/L (3.5-5.1)
[2016-12-15 14:42] LABS: ALB/GLOB RATIO 0.9 (0.9-2)
[2016-12-15 15:13] LABS: PREG INTERNAL NEGATIVE QC NEG CLEAR BACKGROUND; PREG INTERNAL POSITIVE QC POS CONTROL LINE
--- NOTE | 2016-12-15 16:02 | DIAGNOSTIC IMAGING REPORT ---
EXAMINATION: PELVIC ULTRASOUND CLINICAL HISTORY: eval for torsion PAIN COMPARISON STUDY: None FINDINGS: The uterus measured 6 cm. The endometrial stripe measured 6 mm. The right ovary measured not well seen due to overlying bowel content. The left ovary measured 4.5 x 2.5 cm. Normal vascular flow. There is no ultrasonographic evidence of ovarian torsion. It should be noted that ovarian torsion can be present with normal Doppler ultrasonographic findings. There was no evidence of pathologic free pelvic fluid. IMPRESSION: 1. Nonvisualization of the right ovary possibly due to overlying bowel content. 2. Otherwise negative study Electronically signed by: Gabriel Mercado M.D. 12/15/2016 4:01 PM Dictated Date/Time: 12/15/2016 4:00 PM
[2016-12-15 16:27] VITALS: BP 120/64; PULSE 67; O2SAT 96
--- NOTE | 2016-12-15 16:35 | EMERGENCY ROOM VISIT NOTE ---
History Report prepared by Steve: Drea Padilla Under the Supervision of: Dr. Ezio Rich M.D. First contact with patient: 14:24 Chief Complaint: ABDOMINAL PAIN Stated Complaint: ABD. PAIN/CRAMPING Nursing Triage Summary: pt reports bilat lower abd pain and cramping strated this am. feels nauseated no vomiting. History of Present Illness The patient is a 26 year old female who presents to the Emergency Room with complaints of persistent lower abdominal pain starting last night. She describes her pain as an ache with sharp pains when she coughs. She has never experienced this pain before. She has PCOS, but states that the pain is dissimilar. The patient reports that she is nauseous. She denies any vomiting since her abdominal pain started. She is urinating frequently. She denies any vaginal discharge or bleeding. She has not had a US recently so does not know if she has developed more cysts. She states that she could be . She denies any other medical problems. Source of History: patient Onset: last night Position: abdomen (lower) Quality: ache, sharp (with cough) Timing: other (persistent) Modifying Factors (Worsening): other (coughing) Associated Symptoms: + cough, + nausea, + urinary symptoms (frequent urination), No fevers Note: Pt denies vaginal bleeding or discharge. Review of Systems See HPI for pertinent positives & negatives. A total of 10 systems reviewed and were otherwise negative. Past Medical & Surgical Medical Problems: (1) Abdominal pain (2) Cellulitis of lip (3) Conjunctivitis (4) Contusion of right knee (5) Diab Lachelle Wo Compl, Type Ii Or Unspec Type, Not Uncntrld (6) Epigastric abdominal pain (7) Esophageal Reflux (8) Fall from slipping on slippery surface (9) Hyperlipidemia Nec/Nos (10) Hypertension (11) Hypertension Nos (12) Morbid Obesity (13) PCOS (polycystic ovarian syndrome) (14) Sore throat (15) Suicidal ideation (16) Tobacco Use Disorder (17) Upper respiratory infection (18) Work related injury Surgical Problems: (1) History of tonsillectomy and adenoidectomy Family History Diabetes mellitus FH: cancer FH: cardiovascular disease Social History Smoking Status: Current Every Day Smoker Alcohol Use: none Drug Use: none Marital Status: single Housing Status: lives with family Occupation Status: employed Current/Historical Medications Scheduled Bupropion (Wellbutrin Sr), 100 MG PO QAM Bupropion (Wellbutrin Sr), 150 MG PO DAILY@1300 Clonidine Hcl (Catapres), 0.2 MG PO HS Hctz/Lisinopril (Lisinopril/Hctz 10/12.5 Mg), 1 TAB PO DAILY Metformin Hcl (Glucophage), 500 MG PO BID Multivitamin (Multivitamin), 1 TAB PO DAILY Omeprazole (Prilosec), 40 MG PO DAILY Scheduled PRN Ondasetron Odt (Zofran Odt), 1 TAB SL Q6 PRN for Nausea or Vomiting Allergies Coded Allergies: Amoxicillin (Verified Allergy, Unknown, ., 11/17/16) Hydrocodone (Verified Allergy, Unknown, /, 11/17/16) Lanolin (Unverified Allergy, Unknown, BREAKOUT, 11/17/16) Oxycodone (Verified Allergy, Unknown, hives, 11/17/16) Physical Exam Vital Signs Date Time Temp Pulse Resp B/P Pulse Ox O2 Delivery O2 Flow Rate FiO2 12/15/16 16:27 67 16 120/64 96 12/15/16 15:11 72 16 132/71 98 Room Air 12/15/16 14:15 72 20 140/92 12/15/16 13:26 36.6 79 20 172/104 99 Room Air Physical Exam Constitutional: Vital signs reviewed. Eyes: Pupils are equal round reactive to light. Conjunctiva are noninjected. ENT: Pharynx is clear without erythema or exudate. Mucous membranes are moist. Neck supple without meningeal signs. Respiratory: Clear to auscultation bilaterally. Breath sounds are equal bilaterally. Cardiovascular: Regular rate and rhythm. No rubs or gallops. GI: Soft, nondistended. Bowel sounds are present. Suprapubic tenderness, no guarding. No tenderness at McBurney's point. Musculoskeletal: No peripheral edema. No lower extremity tenderness. Integumentary: No cyanosis. Neurological: The patient is awake and alert. No focal deficits. Psychiatric: Normal affect. Medical Decision & Procedures ER Provider Diagnostic Interpretation: Radiology results as stated below per my review and the radiologist's interpretation: EXAMINATION: PELVIC ULTRASOUND CLINICAL HISTORY: eval for torsion PAIN COMPARISON STUDY: None FINDINGS: The uterus measured 6 cm. The endometrial stripe measured 6 mm. The right ovary measured not well seen due to overlying bowel content. The left ovary measured 4.5 x 2.5 cm. Normal vascular flow. There is no ultrasonographic evidence of ovarian torsion. It should be noted that ovarian torsion can be present with normal Doppler ultrasonographic findings. There was no evidence of pathologic free pelvic fluid. IMPRESSION: 1. Nonvisualization of the right ovary possibly due to overlying bowel content. 2. Otherwise negative study Electronically signed by: Gabriel Mercado M.D. 12/15/2016 4:01 PM Dictated Date/Time: 12/15/2016 4:00 PM Laboratory Results 12/15/16 13:56 Red Blood Count 4.81, Mean Corpuscular Volume 84.2, Mean Corpuscular Hemoglobin 27.9, Mean Corpuscular Hemoglobin Concent 33.1, Mean Platelet Volume 9.1, Neutrophils (%) (Auto) 62.8, Lymphocytes (%) (Auto) 23.7, Monocytes (%) (Auto) 9.0, Eosinophils (%) (Auto) 3.7, Basophils (%) (Auto) 0.6, Neutrophils # (Auto) 3.42, Lymphocytes # (Auto) 1.29, Monocytes # (Auto) 0.49, Eosinophils # (Auto) 0.20, Basophils # (Auto) 0.03 12/15/16 13:56 Test 12/15/16 13:50 12/15/16 13:56 Urine Color YELLOW Urine Appearance CLEAR (CLEAR) Urine pH 5.5 (4.5-7.5) Urine Specific [place] 1.012 (1.000-1.030) Urine Protein NEG (NEG) Urine Glucose (UA) NEG (NEG) Urine Ketones NEG (NEG) Urine Occult Blood NEG (NEG) Urine Nitrite NEG (NEG) Urine Bilirubin NEG (NEG) Urine Urobilinogen NEG (NEG) Urine Leukocyte Esterase NEG (NEG) Urine Test NEG (NEG) White Blood Count 5.44 K/uL (4.8-10.8) Red Blood Count 4.81 M/uL (4.2-5.4) Hemoglobin 13.4 g/dL (12.0-16.0) Hematocrit 40.5 % (37-47) Mean Corpuscular Volume 84.2 fL (80-100) Mean Corpuscular Hemoglobin 27.9 pg (25-34) Mean Corpuscular Hemoglobin Concent 33.1 g/dl (32-36) Platelet Count 257 K/uL (130-400) Mean Platelet Volume 9.1 fL (7.4-10.4) Neutrophils (%) (Auto) 62.8 % Lymphocytes (%) (Auto) 23.7 % Monocytes (%) (Auto) 9.0 % Eosinophils (%) (Auto) 3.7 % Basophils (%) (Auto) 0.6 % Neutrophils # (Auto) 3.42 K/uL (1.4-6.5) Lymphocytes # (Auto) 1.29 K/uL (1.2-3.4) Monocytes # (Auto) 0.49 K/uL (0.11-0.59) Eosinophils # (Auto) 0.20 K/uL (0-0.5) Basophils # (Auto) 0.03 K/uL (0-0.2) RDW Standard Deviation 42.5 fL (36.4-46.3) RDW Coefficient of Variation 13.8 % (11.5-14.5) Immature Granulocyte % (Auto) 0.2 % Immature Granulocyte # (Auto) 0.01 K/uL (0.00-0.02) Anion Gap 9.0 mmol/L (3-11) Est Creatinine Clear Calc Drug Dose 214.1 ml/min Estimated GFR () 140.9 Estimated GFR (Non- 121.6 BUN/Creatinine Ratio 12.8 (10-20) Calcium Level 9.1 mg/dl (8.5-10.1) Total Bilirubin 0.4 mg/dl (0.2-1) Aspartate Amino Transf (AST/SGOT) 23 U/L (15-37) Alanine Aminotransferase (ALT/SGPT) 43 U/L (12-78) Alkaline Phosphatase 81 U/L (45-117) Total Protein 7.7 gm/dl (6.4-8.2) Albumin 3.6 gm/dl (3.4-5.0) Globulin 4.1 gm/dl (2.5-4.0) Albumin/Globulin Ratio 0.9 (0.9-2) Lipase 164 U/L (73-393) Laboratory results as reviewed by me. Medications Administered Medications (Trade) Dose Ordered Sig/Eddie Route Start Time Stop Time Status Last Admin Dose Admin Ketorolac Tromethamine (Toradol Inj) 10 mg NOW STAT IV 12/15/16 14:30 12/15/16 14:33 DC 12/15/16 15:04 10 MG Ondansetron HCl (Zofran Inj) 4 mg NOW STAT IV 12/15/16 14:30 12/15/16 14:33 DC 12/15/16 15:04 4 MG ED Course 1426: The patient was evaluated in room A2. A complete history and physical exam was performed. 1430: Zofran Inj 4 mg IV, Toradol Inj 10 mg IV. 1610: I reevaluated the patient. She is resting comfortably. I discussed the test results and treatment plan with her. I recommended she follow up with her PCP and Sample Book Maker. She verbalized understanding and agreement. She will be discharged home. Medical Decision This is a 26-year-old female who presents with lower abdominal pain. Differential diagnosis includes UTI, cystitis, ovarian cyst, ectopic , ovarian torsion. I did perform a limited focused review of portions of the patient's old chart on the electronic medical record. The patient was here on November 17 for vomiting and frequent urination. She was discharged with Zofran. I did evaluate the patient as noted above. Patient is presenting with abdominal pain since yesterday. She has had no fevers or vomiting. She is tender in the suprapubic region on examination. She denies any abnormal vaginal discharge or bleeding. IV access was established. The patient was placed on a continuous cardiac exercise physiologist. I did order and personally review the patient's urinalysis as described above. Urine test was negative. I did treat her with Toradol and Zofran IV. I did order and review the patient's blood work as noted in the electronic medical record. Her white blood cell count is not elevated. I did order an ultrasound of the pelvis. I did review the images myself as well as the radiology report as described above. There is no evidence of portion. The right ovary was not well visualized. I did reassess the patient. I did discuss the test results with her. I did recommend she follow closely with her doctor and emt paramedic for further evaluation. She was given return instructions as outlined below. She was discharged in good condition. Impression Primary Impression: Lower abdominal pain Scribe Attestation The scribe's documentation has been prepared under my direct and personally reviewed by me in its entirety. I confirm that the note above accurately reflects all work, treatment, procedures, and medical decision making performed by me. Departure Information Dispostion Home / Self-Care Referrals Meli Barone D.O. (PCP) Forms HOME CARE DOCUMENTATION FORM, IMPORTANT VISIT INFORMATION, Work Instructions Patient Instructions ED Abd Pain Unkn Cause Fem, My [facility] Additional Instructions You have been examined and treated today on an emergency basis only. This is not a substitute for, or an effort to provide, complete comprehensive medical care. It is impossible to recognize and treat all injuries or illnesses in a single emergency department visit. It is therefore important that you follow up closely with your physician and emt paramedic. Call as soon as possible for an appointment. Return for worsening symptoms or if you develop fever, vomiting, or any other concerning symptoms.
[2017-03-24] MEDS ORDERED: LSN/10125 PO (00:57)
[2017-03-24] MEDS ORDERED: MULT-506 PO (00:59)
[2017-03-24] MEDS ORDERED: CLON0.2T PO (09:17)
[2017-03-24] MEDS ORDERED: GLC/500 PO (21:19)
== END 2016-12-15 16:28 | disposition home or self-care (01) ==
LOC: C.EDB 13:22 → C.EDA 16:28
DX: R10.30 Lower abdominal pain, unspecified (principal); E11.9 Type 2 diabetes mellitus without complications; K21.9 Gastro-esophageal reflux disease without esophagitis; E78.5 Hyperlipidemia, unspecified; I10 Essential (primary) hypertension; E66.01 Morbid (severe) obesity due to excess calories; F17.210 Nicotine dependence, cigarettes, uncomplicated; Z79.899 Other long term (current) drug therapy; Z68.42 Body mass index [BMI] 45.0-49.9, adult

== ENCOUNTER 2017-03-24 21:49 | Emergency (ER) | payer SELFPAY ==
[~2017-03-24] VITALS: Ht 180.3 cm; Wt 169.6 kg
[~2017-03-24 21:49] MED LIST changes: +CLON0.2T PO; +GLC/500 PO; +LSN/10125 PO; +MULT-506 PO
[2017-03-24] MEDS ORDERED: OMEP40CA41 PO (21:53)
[2017-03-24 21:56] VITALS: TEMP 36.7; Ht 180.3 cm; Wt 169.6 kg
[2017-03-24] MEDS ORDERED: IBUPROFEN 600 MG TAB PO STA (22:38)
--- NOTE | 2017-03-24 22:55 | DIAGNOSTIC IMAGING REPORT ---
RIGHT ELBOW MIN 3 VIEWS ROUTINE CLINICAL HISTORY: Right elbow pain following injury. COMPARISON: Right forearm radiographs November 09, 2008. FINDINGS: Alignment of the right elbow is anatomic. No acute fracture or joint effusion is identified. IMPRESSION: No acute fracture or joint effusion of the right elbow. Electronically signed by: Gio Bernard M.D. 03/24/2017 10:54 PM Dictated Date/Time: 03/24/2017 10:53 PM
--- NOTE | 2017-03-24 23:15 | EMERGENCY ROOM VISIT NOTE ---
ED Visit Note First contact with patient: 22:00 CHIEF COMPLAINT: Elbow pain HISTORY OF PRESENT ILLNESS: This 26-year-old female patient presents to the emergency department ambulatory complaining of pain in the right elbow. 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 She states this caused a severe, shooting pain in her right elbow. She rates the discomfort an 8/10. She is having difficulty gripping with her right hand due to the pain. She denies any numbness or weakness. She did not take any medications for the pain. She denies any previous elbow injuries. REVIEW OF SYSTEMS: A 6 system review of systems was completed with positives and pertinent negatives listed in the HPI. ALLERGIES: Amoxicillin, hydrocodone, lanolin, oxycodone MEDICATIONS: See med list PMH: Hypertension, diabetes SOCIAL HISTORY: The patient lives locally with family. PHYSICAL EXAM: Vital Signs: Reviewed Nurse's notes, vital signs stable. GENERAL : This is a 26-year-old female, in no acute distress, well-developed, well- nourished. SKIN: The skin was without rashes, erythema, edema, warmth, or bruising. Capillary reflex less than 3 seconds. MUSCULOSKELETAL: The patient is holding their elbow in slight flexion. There is tenderness over the medial aspect of the right elbow. Range of motion is decreased due to patient discomfort. There is no tenderness of the shoulder, wrist, or hand. Full range of motion of the fingers. Electrical Fitter strength 5/5. Radial pulse 2+. NEURO: Patient was alert and oriented to person place and time. Normal sensation to light and sharp touch. RADIOGRAPHIC FINDINGS: RIGHT ELBOW MIN 3 VIEWS ROUTINE CLINICAL HISTORY: Right elbow pain following injury. COMPARISON: Right forearm radiographs November 09, 2008. FINDINGS: Alignment of the right elbow is anatomic. No acute fracture or joint effusion is identified. IMPRESSION: No acute fracture or joint effusion of the right elbow. EMERGENCY DEPARTMENT COURSE: I examined the patient. An x-ray of the right elbow was reviewed myself and read by radiology and shows no acute fractures or effusion. The patient was placed in an arm sling under my direction and the position was satisfactory. She states she has seen an orthopedic group in the past and will follow-up with them if she has persistent problems with the elbow. She verbalized understanding of my assessment and treatment plan. The patient was discharged home in stable condition. DIAGNOSIS: Elbow injury Problem List Medical Problems: (1) Abdominal pain Status: Resolved (2) Cellulitis of lip Status: Resolved (3) Conjunctivitis Status: Resolved (4) Contusion of right knee Status: Resolved (5) Diab Lachelle Wo Compl, Type Ii Or Unspec Type, Not Uncntrld Status: Chronic (6) Epigastric abdominal pain Status: Resolved (7) Esophageal Reflux Status: Chronic (8) Fall from slipping on slippery surface Status: Resolved (9) Hyperlipidemia Nec/Nos Status: Chronic (10) Hypertension Status: Chronic (11) Morbid Obesity Status: Chronic (12) PCOS (polycystic ovarian syndrome) Status: Chronic (13) Sore throat Status: Resolved (14) Suicidal ideation Status: Resolved (15) Tobacco Use Disorder Status: Chronic (16) Upper respiratory infection Status: Resolved (17) Work related injury Status: Resolved Surgical Problems: (1) History of tonsillectomy and adenoidectomy Status: Resolved Current/Historical Medications Scheduled Clonidine Hcl (Catapres), 0.2 MG PO HS Hctz/Lisinopril (Lisinopril/Hctz 10/12.5 Mg), 1 TAB PO DAILY Metformin Hcl (Glucophage), 500 MG PO BID Multivitamin (Multivitamin), 1 TAB PO DAILY Omeprazole (Prilosec), 40 MG PO DAILY Allergies Coded Allergies: Amoxicillin (Verified Allergy, Unknown, ., 11/17/16) Hydrocodone (Verified Allergy, Unknown, /, 11/17/16) Lanolin (Unverified Allergy, Unknown, BREAKOUT, 11/17/16) Oxycodone (Verified Allergy, Unknown, hives, 11/17/16) Vital Signs Date Time Temp Pulse Resp B/P (MAP) Pulse Ox O2 Delivery O2 Flow Rate FiO2 03/24/17 23:24 79 18 152/107 97 03/24/17 21:56 36.7 82 18 156/93 98 Room Air Medications Administered Medications (Trade) Dose Ordered Sig/Eddie Route Start Time Stop Time Status Last Admin Dose Admin Ibuprofen (Motrin Tab) 600 mg NOW STAT PO 03/24/17 22:38 03/24/17 22:39 DC 03/24/17 22:47 600 MG Departure Information Impression Primary Impression: Right elbow pain Dispostion Home / Self-Care Condition GOOD Referrals Meli Barone D.O. (PCP) Patient Instructions [facility] Additional Instructions You have been treated in the Emergency Department for Elbow Pain. For pain control, you can use the following [id number] medicines (if >12 yo): - Regular strength (325mg/tab) Tylenol (acetaminophen) 2 tabs every 4-6 hours as needed. Do not exceed 12 tablets in a 24 hour period. Avoid taking more than 4 grams (4000 mg) of Tylenol per day. This includes any other sources of acetaminophen you may take on a regular basis. - Regular strength (200 mg/tab) Advil (ibuprofen) 1-2 tabs every 4-6 hours as needed. Do not exceed a dose of 3200 mg per day. If this is a recent injury (<24 hrs), ice can be applied to the area of pain for the first 3 days to help decrease pain and inflammation. Wear the sling as needed for the next several days. Follow-up with your primary care provider or orthopedics as needed for continued pain. Return to the Emergency Department if your current symptoms worsen despite treatment course outlined above, or if you develop any of the following symptoms : intractable pain despite aforementioned treatment course or new onset of numbness or tingling of the arm.
[2017-03-24 23:24] VITALS: BP 152/107; PULSE 79; O2SAT 97
== END 2017-03-24 23:24 | disposition home or self-care (01) ==
LOC: C.EDB 21:50 → C.EDC 23:24
DX: M25.521 Pain in right elbow (principal); I10 Essential (primary) hypertension; E11.9 Type 2 diabetes mellitus without complications; E78.5 Hyperlipidemia, unspecified; K21.9 Gastro-esophageal reflux disease without esophagitis; Z79.84 Long term (current) use of oral hypoglycemic drugs; Z79.899 Other long term (current) drug therapy; Z87.828 Personal history of other (healed) physical injury and trauma

== ENCOUNTER 2017-05-09 17:39 | Emergency (ER) | payer SELFPAY ==
[~2017-05-09] VITALS: Ht 180.3 cm; Wt 167.0 kg
[~2017-05-09 17:39] MED LIST changes: -BUPR-79 PO; -BUPR100T8 PO; +OMEP40CA41 PO; -ONDA4TAB10 SL
[2017-05-09 17:46] VITALS: TEMP 36.7; Ht 180.3 cm; Wt 167.0 kg
--- NOTE | 2017-05-09 19:15 | DIAGNOSTIC IMAGING REPORT ---
RIGHT FOOT 3 VIEWS CLINICAL HISTORY: Right foot pain. No reported history of trauma. FINDINGS: 3 views of the right foot are compared to study dated 02/28/2010. The skeletal structures are well mineralized. No fracture is seen. The joint spaces of the foot are well-maintained. There are small dorsal and large plantar calcaneal enthesophytes. Mild degenerative spurring is seen along the dorsal aspect of the tarsal bones. The overlying soft tissues are within normal limits. IMPRESSION: Heel spurs with no acute bony abnormality seen in the right foot. Electronically signed by: Juanito Good M.D. 05/09/2017 7:13 PM Dictated Date/Time: 05/09/2017 7:12 PM
[2017-05-09] MEDS ORDERED: KETOROLAC TROMETHAMINE 10 MG TAB PO STA (19:27)
[2017-05-09] MEDS ORDERED: KETO10TA PO (19:31)
[2017-05-09] MEDS ORDERED: EMPTY 8 DRAM VIAL ONE (19:37)
[2017-05-09 19:44] VITALS: BP 120/67; PULSE 66; O2SAT 99
--- NOTE | 2017-05-10 00:15 | EMERGENCY ROOM VISIT NOTE ---
ED Visit Note First contact with patient: 17:54 Chief Complaint: Right heel pain. History of Present Illness: Ms. Arboleda is a 26-year-old white female who ambulates into the ED accompanied by a male friend complaining of right calcaneus pain. Patient reports her pain has been ongoing for the last 4 months. She does not remember any precipitating trauma before the onset of her pain. Since that time her pain has been constant. She reports it has exacerbated over the last 2 weeks after she returned from vacation. She describes her pain as a sharp and throbbing sensation over the plantar surface of the calcaneus. She rates her discomfort 8/10. Her pain is nonradiating. Her pain worsens with palpation and ambulation. She has not identified any alleviating factors related to the pain. She has ibuprofen without relief of her discomfort. She denies any associated symptoms including ankle pain, toe pain, foot weakness/ numbness/tingling. She denies any previous significant injuries or surgeries to her foot. Review of Systems: As noted above in history of present illness. Past Medical History: Hypertension, polycystic ovary syndrome, status post tonsillectomy and adenoidectomy. Current Medications: Patient denies. Allergies to Medications: Oxycodone, hydrocodone and amoxicillin. Social History: Patient is not employed; she feels safe in her home environment ; she admits to tobacco use and denies alcohol use. Physical Examination: Vital Signs: Date Time Temp Pulse Resp B/P (MAP) Pulse Ox O2 Delivery O2 Flow Rate FiO2 05/09/17 19:44 66 120/67 99 Room Air 05/09/17 17:46 36.7 98 20 163/102 98 Room Air GENERAL: 26-year-old female in mild distress due to pain, nontoxic-appearing, afebrile and hemodynamically stable. NEUROLOGICAL: Awake, alert and oriented to person, place and time. Answering questions appropriately and following commands. SKIN: Warm, dry and pink. No soft tissue eruptions or trauma noted. RIGHT LOWER EXTREMITY: No gross bony deformity. No tenderness over the knee, lower leg or ankle. Moderate tenderness over the plantar surface of the calcaneus without bony deformity or crepitus. There is no local erythema or edema. There is no foreign bodies in the heel and I do not appreciate any signs of infection. Patient has no ligamentous laxity at the level of the ankle. She does have full range of motion in plantar flexion and dorsiflexion of the ankle. Throughout the foot the skin was warm and pink and capillary refill is brisk. She was able to distinguish light sensations through all dermatomes. ED Course: Patient is assessed as noted above. Patient's medication list was reviewed. Right Foot X-Rays: Was read by myself and the radiologist and shows no acute fractures or dislocations. Small dorsal and large plantar calcaneus spurs noted. Patient was placed in a postop shoe and on nonweightbearing crutches. Patient was educated about tonight's findings and instructed on her treatment plan; she verbalized understanding and agreement with this plan. Clinical Impression: Calcaneal spurs. Disposition: Patient discharged home in stable condition accompanied by a male friend; prior to departure she was reassessed and subjectively reported she was feeling much better and rated her discomfort 3/10. Plan: Patient was prescribed tramadol 10 mg every 6 hours as needed for pain. Additional cuff measures were discussed with the patient including ice, postop shoe and nonweightbearing crutches. Patient was encouraged to follow-up with podiatry for specialty care and treatment. Patient was encouraged return ED for worsening/uncontrolled pain, uncontrolled swelling, redness/swelling, foot weakness/numbness/tingling or any new/ concerning symptoms.
== END 2017-05-09 19:50 | disposition home or self-care (01) ==
LOC: C.EDB 17:43 → C.EDD 19:50
DX: M77.31 Calcaneal spur, right foot (principal)

== ENCOUNTER 2017-07-31 00:19 | Emergency (ER) | payer OTHER ==
[~2017-07-31] VITALS: Ht 180.3 cm; Wt 167.1 kg
[~2017-07-31 00:19] MED LIST changes: -CLON0.2T PO; -GLC/500 PO; -LSN/10125 PO; -MULT-506 PO; +NITR-5 PO; -OMEP40CA41 PO
[2017-07-31 00:21] VITALS: BP 185/130; PULSE 96; TEMP 37; O2SAT 99; Ht 180.3 cm; Wt 167.1 kg
[2017-07-31] MEDS ORDERED: XYLOCAINE 1%/SOD BICARB 20 ML VIAL INFIL ONE (01:00)
[2017-07-31] MEDS ORDERED: NITR-5 PO (01:07)
--- NOTE | 2017-07-31 22:27 | EMERGENCY ROOM VISIT NOTE ---
History First contact with patient: 00:42 Chief Complaint: LACERATION/CUT (SUT/DERMABOND) Stated Complaint: CUT ON BACK OF RIGHT ANKLE Nursing Triage Summary: lac to heel on R foot History of Present Illness The patient is a 26 year old female who presents to the Emergency Room with complaints of laceration to the back of her right foot. The patient states that she was walking her dogs about an hour ago, and the screen door of the house struck in the back of her foot. She is reportedly up-to-date on her tetanus. She is able to ambulate and the bleeding is controlled. He does not have other complaints and rates her discomfort a 2/10. Review of Systems More than 10 systems were reviewed and otherwise negative with the exception of history of present illness. Past Medical/Surgical History Medical Problems: (1) Abdominal pain (2) Cellulitis of lip (3) Conjunctivitis (4) Contusion of right knee (5) Diab Lachelle Wo Compl, Type Ii Or Unspec Type, Not Uncntrld (6) Epigastric abdominal pain (7) Esophageal Reflux (8) Fall from slipping on slippery surface (9) Hyperlipidemia Nec/Nos (10) Hypertension (11) Hypertension Nos (12) Morbid Obesity (13) PCOS (polycystic ovarian syndrome) (14) Sore throat (15) Suicidal ideation (16) Tobacco Use Disorder (17) Upper respiratory infection (18) Work related injury Surgical Problems: (1) History of tonsillectomy and adenoidectomy Family History Diabetes mellitus FH: cancer FH: cardiovascular disease Social History Smoking Status: Current Every Day Smoker Alcohol Use: none Drug Use: none Marital Status: single Housing Status: lives with family Occupation Status: employed Current/Historical Medications Scheduled Nitrofurantoin Monohyd Macrocr (Macrobid), 100 MG PO BID Physical Exam Vital Signs Date Time Temp Pulse Resp B/P (MAP) Pulse Ox O2 Delivery O2 Flow Rate FiO2 07/31/17 00:21 37.0 96 20 185/130 99 Room Air Physical Exam VITALS: Vitals are noted on the nurse's note and reviewed by myself. Vital signs stable. GENERAL: Well-developed, well-nourished, white female, who is in no acute distress and resting comfortably. Patient is cooperative with the examination. HEART: Regular rate and rhythm without murmurs gallops or rubs. LUNGS: Clear to auscultation bilaterally without wheezes, rales or rhonchi. No retractions or accessory muscle use. SKIN: The skin was with a 4.5 cm fairly linear laceration to the posterior aspect of the right heel. This does gape and will require repair. Medical Decision & Procedures Procedure Laceration repair. Patient elects to have their laceration repaired. Verbal consent was obtained to perform the procedure. There is an abundance of materials available for the procedure. Patient is not allergic to latex. Using sterile technique the wound was cleaned with Betadine. The area was sterilely draped. 4 ml of 1% buffered lidocaine was used to anesthetize the right heel. Once the patient was anesthetized, the wound was copiously irrigated under pressure with sterile saline. The wound was explored and there were no deep structures injured such as tendons, bone, or significant blood vessels. The laceration was repaired using 6 aracely with the wound edges being well approximated. Hemostasis was achieved. The area was cleaned with sterile saline and dressed with bacitracin ointment and bandage. Patient tolerated the procedure well without complications. Blood loss was negligible. ED Course Physical exam and history were performed. Nursing notes, EMR, and Medication List were personally reviewed. Patient appears to have a laceration of her right heel. The patient wound was repaired as above and she tolerated the procedure well. The patient was given discharge instructions as below and was invited back to ER with any new, worsening, or concerning symptoms. The chart was completed utilizing [employer] Speech Voice Recognition Software. Grammatical errors, random word insertions, pronoun errors, and incomplete sentences are an occasional consequence of this system due to software limitations, ambient noise, and hardware issues. Any formal questions or concerns about the content, text, or information contained within the body of this dictation should be directly addressed to the provider for clarification. . Medical Decision Differential diagnosis includes, but is not limited to: Laceration, abrasion, foreign body, and others Impression Primary Impression: Foot laceration Departure Information Dispostion Home / Self-Care Condition GOOD Forms HOME CARE DOCUMENTATION FORM, IMPORTANT VISIT INFORMATION Patient Instructions [facility], ED Laceration All, ED Scar Tips to Minimize Additional Instructions Keep wound clean and dry. Do not allow any crusting or dried blood to accumulate on aracely. If this occurs, use a mild soap/water on a Q-tip to clean the wound. Do not use Peroxide to clean the wound as this can delay healing Use an antibiotic ointment like Bacitracin for 3-4 days, then let wound dry. You may bathe and shower as normal, but DO NOT SOAK the wound. Staple removal in about 12-14 days with your Family Doctor or in the ER. Return sooner for any signs of infection, increasing redness, swelling, or drainage.
== END 2017-07-31 01:42 | disposition home or self-care (01) ==
LOC: C.EDB 00:20
DX: S91.311A Laceration without foreign body, right foot, initial encounter (principal); W22.8XXA Striking against or struck by other objects, initial encounter; E11.9 Type 2 diabetes mellitus without complications; I10 Essential (primary) hypertension; E78.5 Hyperlipidemia, unspecified; E28.2 Polycystic ovarian syndrome; K21.9 Gastro-esophageal reflux disease without esophagitis; F17.200 Nicotine dependence, unspecified, uncomplicated; Z86.19 Personal history of other infectious and parasitic diseases; Z91.81 History of falling; Z87.828 Personal history of other (healed) physical injury and trauma; Z98.890 Other specified postprocedural states; Z83.3 Family history of diabetes mellitus; Z80.9 Family history of malignant neoplasm, unspecified; Z82.49 Family history of ischemic heart disease and other diseases of the circulatory system